=== PATIENT | male | born 1970 | race Caucasian/White ===

== ENCOUNTER 2019-05-12 15:58 | Emergency (ER) | payer BC ==
--- OUTSIDE RECORDS SUMMARY | 2019-05-12 16:25 | XMS REPORT | Continuity of Care Document ---
:1970 External Reference #:[id number] Author Name Kentrell Siegel DO Address [address] [place] [address] Care Team Providers Name Role Phone Rachelle Carroll MD Care Team Information Delivery And Mail Sorter [phone] Problems Active Problems Provider Date Epilepsy Vaughn Sumner DO Onset: 03/27/2017 Social History Type Date Description Comments Sex Unknown ETOH Use consumes 4 six packs per week Tobacco Use Start: Unknown Patient has never smoked Recreational Drug Use Denies Drug Use Allergies, Adverse Reactions, Alerts Active Allergies Reaction Severity Comments Date NKDA 01/22/2015 Seasonal 04/11/2019 Medications Active Medications SIG Qnty Indications Ordering Provider Date Fluticasone Propionate 1 spray each 16gm Kentrell Siegel DO 04/11/2019 nostril 1-2 times 50mcg/Act Suspension a day Claritin 1 by mouth every Unknown 10mg Tablets day Immunizations CPT Code Status Date Vaccine Lot # [id number] Given 03/28/2018 Tdap (Adacel) Ages 7 And Above Only [id number] Given 08/22/2007 Tdap (Adacel) Ages 7 And Above Only [id number] Refused 04/11/2019 Influenza Vac, Quadrivalent, Split, 0.5mL Dosage, Im Use [id number] Refused 03/28/2018 Afluria Imunization Vital Signs Date Vital Result Comment 04/11/2019 10:22am Weight 250.00 lb Heart Rate 72 /min BP Systolic 134 mmHg BP Diastolic 84 mmHg Respiratory Rate 18 /min Height 68.5 inches 5'8.50" BMI (Body Mass Index) 37.5 kg/m2 03/28/2018 2:08pm Weight 254.00 lb Heart Rate 72 /min BP Systolic 130 mmHg BP Diastolic 80 mmHg Respiratory Rate 17 /min Height 68.5 inches 5'8.50" 03/27/17 BMI (Body Mass Index) 38.1 kg/m2 Results Test Date Facility Test Result H/L Range Note Laboratory test finding 04/11/2019 [facility] <pending> Procedures Description No Information Available Medical Devices Description No Information Available Encounters Description No Information Available Assessments Date Code Description Provider 04/11/2019 Z00.00 Encounter for general adult medical Kentrell Siegel DO examination without abnormal findings 04/11/2019 R61 Generalized hyperhidrosis Kentrell Siegel, 04/11/2019 Q66.50 Congenital pes planus, unspecified foot Kentrell Siegel, 04/11/2019 B00.1 Herpesviral vesicular dermatitis Kentrell Siegel DO 04/11/2019 J30.9 Allergic rhinitis, unspecified Kentrell Siegel, 04/11/2019 F10.20 Alcohol dependence, uncomplicated Kentrell Siegel DO 04/11/2019 E66.9 Obesity, unspecified Kentrell Siegel, 04/11/2019 R03.0 Elevated blood-pressure reading, without Kentrell Siegel DO diagnosis of hypertension 04/11/2019 Z68.37 Body mass index (BMI) 37.0-37.9, adult Kentrell Siegel DO 04/11/2019 R03.0 Elevated blood-pressure reading, w/o diagnosis Schedule, Laboratory of htn Plan of Treatment Future Appointment(s):04/12/2020 8:30 am - Kentrell Siegel DO at [facility]04/11/2019 - Kentrell Siegel DOZ00.00 Encounter for general adult medical examination without abnormal findingsFollow up:Blood work today and will follow up with me in 1 year for an Annual Physical Exam.R61 Generalized hyperhidrosisComments: Improved at the present time. Will continue to monitor.Q66.50 Congenital pes planus, unspecified footB00.1 Herpesviral vesicular guszlldxtsB45.9 Allergic rhinitis, unspecifiedComments:Condition reviewed with the patient in detail. May have chronic sinusitis. On physical exam, there is swelling noted in the turbinate. -Recommended the patient that he can use the antihistamines such as Zyrtec, Claritin, Varsha. Encouraged him to continue taking Claritin as he is on the medication.-Recommended the patient to do sinus rinses; Neti-pots.- Recommended using a nose spray; A script for Fluticasone was provided today. - If the symptoms persist or worsen, would need a referral to ENT to specialist.F10.20 Alcohol dependence, qleadajtmgnweI86.9 Obesity, unspecifiedComments:The patient had lost 4lbs of body weight since the previous visit and he currently weighs around 250lbs. A detailed discussion was had with the patient regarding his body weight and BMI. He was made aware about the health hazards of obesity including diabetes, hypertension, cardiac diseases , and other various risk factors. He was advised to maintain a healthy and low- calorie diet and a regular exercise regimen which will help him lose weight.R03.0 Elevated blood-pressure reading, without diagnosis of hypertensionComments:Keep an eye on your blood pressure. Normal blood pressure if 120/80. You should check this about once a week. If this is consistently over 140/90, please come in for evaluation of high blood pressure.Z68.37 Body mass index (BMI) 37.0-37.9, adultComments:The patient's BMI is at 37.5. The patient was strongly encouraged to lose weight with low-calorie diet and exercises. We will continue to monitor weight and BMI periodically.AllNew Medication:Fluticasone Propionate 50 mcg/Act - 1 spray each nostril 1-2 times a day Functional Status Description No Information Available Mental Status Description No Information Available Referrals Description No Information Available
[2019-05-12 20:14] LABS: ABS Basophils 0.1 10^3/ul (0-0.2); ABS Eosinophils 0.1 10^3/ul (0-0.6); ABS Lymphocytes 2.6 10^3/ul (1.0-4.8); ABS Monocytes 0.4 10^3/ul (0-0.8); ABS Neutrophils 4.5 10^3/ul (1.5-7.7); Eosinophil % 0.7 %; Hematocrit 45 % (42-52); Hemoglobin 15.4 g/dL (14.0-18.0); Lymphocyte % 34.6 %; Mean Corpuscular HGB Conc 34 g/dL (31-36); Mean Corpuscular Hemoglobin 30 pg (27-31); Mean Corpuscular Volume 88 fL (80-94); Mean Platelet Volume 9.8 fL (7.4-10.4); Nucleated Red Blood Cells % 0.1; Platelet Count 190 10^3/uL (150-450); Red Blood Count 5.19 10^6 /uL (4.18-5.48); Red Cell Distribution Width 14 % (10-15); White Blood Count 7.7 10^3/uL (3.5-10.8)
[2019-05-12 20:24] LABS: INR 0.99 (0.82-1.09)
[2019-05-12 20:31] LABS: Albumin 4.5 g/dL (3.2-5.2); Albumin/Globulin Ratio 1.4 (1-3); C Reactive Protein 2.27 mg/L (<8.01); Calcium 9.5 mg/dL (8.6-10.3); EGFR Non-African American 68.6 (>60); Globulin 3.3 g/dL (2-4); Potassium 4.1 mmol/L (3.5-5.0); Total Bilirubin 0.5 mg/dL (0.2-1.0); Total Protein 7.8 g/dL (6.4-8.9)
[2019-05-12 21:26] LABS: Urine Appearance Clear; Urine Bilirubin Negative (Negative); Urine Blood Negative (Negative); Urine Color Yellow; Urine Glucose Negative (Negative); Urine Ketones Negative (Negative); Urine Nitrite Negative (Negative); Urine Protein Negative (Negative); Urine Urobilinogen Negative (Negative)
--- NOTE | 2019-05-12 21:37 | ED ---
Abdominal Pain/Male - HPI Summary HPI Summary: This patient is a 48 year old M presenting to [facility] accompanied by_ with a chief complaint of _ since _ The patient rates the pain _/10 in severity. Symptoms aggravated by nothing. Symptoms alleviated by nothing. Patient reports Patient denies PMHx of - History of Current Complaint Chief Complaint: EDFlankPain Stated Complaint: LT SIDE PAIN PER PT Time Seen by Provider: 05/12/19 21:31 Hx Obtained From: Patient Pain Intensity: 8 - Allergies/Home Medications Allergies/Adverse Reactions: Allergies Allergy/AdvReac Type Severity Reaction Status Date / Time No Known Allergies Allergy Verified 06/08/15 19:48 PMH/Surg Hx/FS Hx/Imm Hx Previously Healthy: No Endocrine/Hematology History: Denies: Hx Diabetes Cardiovascular History: Denies: Hx Hypertension, Hx Pacemaker/ICD History: Denies: Hx Renal Disease Sensory History: Denies: Hx Hearing Aid Psychiatric History: Denies: Hx Panic Disorder - Surgical History Surgical History: Yes Surgery Procedure, Year, and Place: Pylonidal Cystectomy, 1997, [facility]. RIGHT KNEE MENISCUS REPAIR Infectious Disease History: No Infectious Disease History: Reports: Hx Shingles Denies: Traveled Outside the [place] in Last 30 Days - Family History Known Family History: Positive: None - Social History Alcohol Use: Weekly Alcohol Amount: 6 Substance Use Type: Reports: None Smoking Status (MU): Never Smoked Tobacco Review of Systems All Other Systems Reviewed And Are Negative: Yes Physical Exam - Summary Physical Exam Summary: General: Well-developed, Well-nourished MALE. No acute distress. HEENT: Normocephalic, Atraumatic. Eyes: Conjuctiva normal, PERRL. Ears: TMs within normal limits. Nares: (-) discharge, (-) erythema. Oropharynx: Clear, mucous membranes moist, (-) exudates. Neck: Soft, FROM, (-) lymphadenopathy, (-) thyromegaly, (-) JVD. Cardiovascular: Normal sinus rhythm, (-) murmur. Lungs: Clear to auscultation bilaterally (-) wheezes, (-) rales, (-) rhonchi. Abdomen: Soft, non-tender, non-distended, (-) organomegaly, normal bowel sounds. Back: (-) CVA tenderness Extremities: No edema. Skin: Warm, dry, (-) rash. Neuro: Alert and oriented x3, no focal deficits. Psychiatric: Mood normal, affect normal. Triage Information Reviewed: Yes Vital Signs On Initial Exam: Initial Vitals Temp Pulse Resp BP Pulse Ox 98.9 F 92 18 147/101 98 05/12/19 16:00 05/12/19 16:00 05/12/19 16:00 05/12/19 16:00 05/12/19 16:00 Vital Signs Reviewed: Yes Procedures - Sedation Patient Received Moderate/Deep Sedation with Procedure: No Diagnostics - Vital Signs Vital Signs Temp Pulse Resp BP Pulse Ox 05/12/19 16:00 98.9 F 92 18 147/101 98 - Laboratory Lab Results: Lab Results 05/12/19 05/12/19 05/12/19 Range/Units 20:06 20:06 20:06 WBC 7.7 (3.5-10.8) 10^3/uL RBC 5.19 (4.18-5.48) 10^6 /uL Hgb 15.4 (14.0-18.0) g/dL Hct 45 (42-52) % MCV 88 (80-94) fL MCH 30 (27-31) pg MCHC 34 (31-36) g/dL RDW 14 (10-15) % Plt Count 190 (150-450) 10^3/uL MPV 9.8 (7.4-10.4) fL Neut % (Auto) 58.3 % Lymph % (Auto) 34.6 % [place] % (Auto) 5.7 % Eos % (Auto) 0.7 % Baso % (Auto) 0.7 % Absolute Neuts (auto) 4.5 (1.5-7.7) 10^3/ul Absolute Lymphs (auto) 2.6 (1.0-4.8) 10^3/ul Absolute Monos (auto) 0.4 (0-0.8) 10^3/ul Absolute Eos (auto) 0.1 (0-0.6) 10^3/ul Absolute Basos (auto) 0.1 (0-0.2) 10^3/ul Absolute Nucleated RBC 0.0 10^3/ul Nucleated RBC % 0.1 INR (Anticoag Therapy) 0.99 (0.82-1.09) Sodium 138 (135-145) mmol/L Potassium 4.1 (3.5-5.0) mmol/L Chloride 103 (101-111) mmol/L Carbon Dioxide 28 (22-32) mmol/L Anion Gap 7 (2-11) mmol/L BUN 16 (6-24) mg/dL Creatinine 1.14 (0.67-1.17) mg/dL Est GFR ( Amer) 83.0 (>60) Est GFR (Non-Af Amer) 68.6 (>60) BUN/Creatinine Ratio 14.0 (8-20) Glucose 94 (70-100) mg/dL Lactic Acid (0.5-2.0) mmol/L Calcium 9.5 (8.6-10.3) mg/dL Total Bilirubin 0.50 (0.2-1.0) mg/dL AST 23 (13-39) U/L ALT 35 (7-52) U/L Alkaline Phosphatase 59 (34-104) U/L C-Reactive Protein 2.27 (<8.01) mg/L Total Protein 7.8 (6.4-8.9) g/dL Albumin 4.5 (3.2-5.2) g/dL Globulin 3.3 (2-4) g/dL Albumin/Globulin Ratio 1.4 (1-3) Urine Color Urine Appearance Urine pH (5-9) Ur Specific [place] (1.010-1.030) Urine Protein (Negative) Urine Ketones (Negative) Urine Blood (Negative) Urine Nitrate (Negative) Urine Bilirubin (Negative) Urine Urobilinogen (Negative) Ur Leukocyte Esterase (Negative) Urine Glucose (Negative) 05/12/19 05/12/19 Range/Units 20:07 21:16 WBC (3.5-10.8) 10^3/uL RBC (4.18-5.48) 10^6 /uL Hgb (14.0-18.0) g/dL Hct (42-52) % MCV (80-94) fL MCH (27-31) pg MCHC (31-36) g/dL RDW (10-15) % Plt Count (150-450) 10^3/uL MPV (7.4-10.4) fL Neut % (Auto) % Lymph % (Auto) % [place] % (Auto) % Eos % (Auto) % Baso % (Auto) % Absolute Neuts (auto) (1.5-7.7) 10^3/ul Absolute Lymphs (auto) (1.0-4.8) 10^3/ul Absolute Monos (auto) (0-0.8) 10^3/ul Absolute Eos (auto) (0-0.6) 10^3/ul Absolute Basos (auto) (0-0.2) 10^3/ul Absolute Nucleated RBC 10^3/ul Nucleated RBC % INR (Anticoag Therapy) (0.82-1.09) Sodium (135-145) mmol/L Potassium (3.5-5.0) mmol/L Chloride (101-111) mmol/L Carbon Dioxide (22-32) mmol/L Anion Gap (2-11) mmol/L BUN (6-24) mg/dL Creatinine (0.67-1.17) mg/dL Est GFR ( Amer) (>60) Est GFR (Non-Af Amer) (>60) BUN/Creatinine Ratio (8-20) Glucose (70-100) mg/dL Lactic Acid 1.1 (0.5-2.0) mmol/L Calcium (8.6-10.3) mg/dL Total Bilirubin (0.2-1.0) mg/dL AST (13-39) U/L ALT (7-52) U/L Alkaline Phosphatase (34-104) U/L C-Reactive Protein (<8.01) mg/L Total Protein (6.4-8.9) g/dL Albumin (3.2-5.2) g/dL Globulin (2-4) g/dL Albumin/Globulin Ratio (1-3) Urine Color Yellow Urine Appearance Clear Urine pH 5.0 (5-9) Ur Specific [place] 1.020 (1.010-1.030) Urine Protein Negative (Negative) Urine Ketones Negative (Negative) Urine Blood Negative (Negative) Urine Nitrate Negative (Negative) Urine Bilirubin Negative (Negative) Urine Urobilinogen Negative (Negative) Ur Leukocyte Esterase Negative (Negative) Urine Glucose Negative (Negative) Result Diagrams: 05/12/19 20:06 05/12/19 20:06 Lab Statement: Any lab studies that have been ordered have been reviewed, and results considered in the medical decision making process. Discharge ED - Discharge Plan Referrals: Kentrell Siegel DO [Primary Care Provider] - - Attestation Statements Document Initiated by Scribe: Yes Documenting Scribe: Emory Toribio Provider For Whom Scribe is Documenting (Include Credential): Dr. Rani Hines MD Scribe Attestation: IEmory, scribed for Dr. Rani Hines MD on 05/12/19 at 2137.
--- NOTE | 2019-05-12 21:59 | ED ---
Back Pain - HPI Summary HPI Summary: This patient is a 48 year old M presenting to [facility] accompanied by a female wire spiral binder with a chief complaint of intermittent, sharp left lower back pain since this morning. Pt states the pain is worse every time the pain comes back. He never had symptoms like this before. Pt did not take any pain medications. He does not have any medical problems, but has a history of surgeries. The patient rates the pain 2/10 in severity. He states the pain was much more severe but seemed to dissipate after getting into the exam room. Symptoms aggravated by nothing. Symptoms alleviated by nothing. Patient reports diarrhea. Patient denies fever, nausea, vomiting, difficulty urinating. Pt does not smoke or use recreational drugs, but occasionally drinks alcohol. - History of Current Complaint Chief Complaint: EDFlankPain Stated Complaint: LT SIDE PAIN PER PT Time Seen by Provider: 05/12/19 21:31 Hx Obtained From: Patient Onset/Duration: Sudden Onset, Lasting Hours - since this morning Onset/Duration: Started Hours Ago, Still Present Timing: Intermittent Severity Initially: Mild Severity Currently: Mild Pain Intensity: 2 Pain Scale Used: 0-10 Numeric Character: Sharp Aggravating Symptom(s): Nothing Alleviating Symptom(s): Nothing Associated Signs And Symptoms: Positive: Other - positive - lower back pain, diarrhea. negative - nausea, vomiting.. Negative: Fever, Bladder Incontinence - Allergies/Home Medications Allergies/Adverse Reactions: Allergies Allergy/AdvReac Type Severity Reaction Status Date / Time No Known Allergies Allergy Verified 06/08/15 19:48 PMH/Surg Hx/FS Hx/Imm Hx Previously Healthy: No Endocrine/Hematology History: Denies: Hx Diabetes Cardiovascular History: Denies: Hx Hypertension, Hx Pacemaker/ICD History: Denies: Hx Renal Disease Psychiatric History: Denies: Hx Panic Disorder - Surgical History Surgical History: Yes Surgery Procedure, Year, and Place: Pylonidal Cystectomy, 1997, [facility]. RIGHT KNEE MENISCUS REPAIR Infectious Disease History: No Infectious Disease History: Reports: Hx Shingles Denies: Traveled Outside the [place] in Last 30 Days - Family History Known Family History: Positive: None - Social History Alcohol Use: Weekly Alcohol Amount: 6 Substance Use Type: Reports: None Smoking Status (MU): Never Smoked Tobacco Review of Systems Negative: Fever Positive: Diarrhea. Negative: Vomiting, Nausea Genitourinary: Other - negative - difficulty urinating Musculoskeletal: Other - positive - lower back pain All Other Systems Reviewed And Are Negative: Yes Physical Exam - Summary Physical Exam Summary: General: Well-developed, Well-nourished MALE. Mild discomfort. HEENT: Normocephalic, Atraumatic. Eyes: Conjuctiva normal, PERRL. Ears: TMs within normal limits. Nares: (-) discharge, (-) erythema. Oropharynx: Clear, mucous membranes moist, (-) exudates. Neck: Soft, FROM, (-) lymphadenopathy, (-) thyromegaly, (-) JVD. Cardiovascular: Normal sinus rhythm, (-) murmur. Lungs: Clear to auscultation bilaterally (-) wheezes, (-) rales, (-) rhonchi. Abdomen: Soft, non-tender, non-distended, (-) organomegaly, normal bowel sounds. Back: (-) CVA tenderness Extremities: No edema. Skin: Warm, dry, (-) rash. Neuro: Alert and oriented x3, no focal deficits. Psychiatric: Mood normal, affect normal. Triage Information Reviewed: Yes Vital Signs On Initial Exam: Initial Vitals Temp Pulse Resp BP Pulse Ox 98.9 F 92 18 147/101 98 05/12/19 16:00 05/12/19 16:00 05/12/19 16:00 05/12/19 16:00 05/12/19 16:00 Vital Signs Reviewed: Yes Procedures - Sedation Patient Received Moderate/Deep Sedation with Procedure: No Diagnostics - Vital Signs Vital Signs Temp Pulse Resp BP Pulse Ox 05/12/19 16:00 98.9 F 92 18 147/101 98 - Laboratory Lab Results: Lab Results 05/12/19 05/12/19 05/12/19 Range/Units 20:06 20:06 20:06 WBC 7.7 (3.5-10.8) 10^3/uL RBC 5.19 (4.18-5.48) 10^6 /uL Hgb 15.4 (14.0-18.0) g/dL Hct 45 (42-52) % MCV 88 (80-94) fL MCH 30 (27-31) pg MCHC 34 (31-36) g/dL RDW 14 (10-15) % Plt Count 190 (150-450) 10^3/uL MPV 9.8 (7.4-10.4) fL Neut % (Auto) 58.3 % Lymph % (Auto) 34.6 % [place] % (Auto) 5.7 % Eos % (Auto) 0.7 % Baso % (Auto) 0.7 % Absolute Neuts (auto) 4.5 (1.5-7.7) 10^3/ul Absolute Lymphs (auto) 2.6 (1.0-4.8) 10^3/ul Absolute Monos (auto) 0.4 (0-0.8) 10^3/ul Absolute Eos (auto) 0.1 (0-0.6) 10^3/ul Absolute Basos (auto) 0.1 (0-0.2) 10^3/ul Absolute Nucleated RBC 0.0 10^3/ul Nucleated RBC % 0.1 INR (Anticoag Therapy) 0.99 (0.82-1.09) Sodium 138 (135-145) mmol/L Potassium 4.1 (3.5-5.0) mmol/L Chloride 103 (101-111) mmol/L Carbon Dioxide 28 (22-32) mmol/L Anion Gap 7 (2-11) mmol/L BUN 16 (6-24) mg/dL Creatinine 1.14 (0.67-1.17) mg/dL Est GFR ( Amer) 83.0 (>60) Est GFR (Non-Af Amer) 68.6 (>60) BUN/Creatinine Ratio 14.0 (8-20) Glucose 94 (70-100) mg/dL Lactic Acid (0.5-2.0) mmol/L Calcium 9.5 (8.6-10.3) mg/dL Total Bilirubin 0.50 (0.2-1.0) mg/dL AST 23 (13-39) U/L ALT 35 (7-52) U/L Alkaline Phosphatase 59 (34-104) U/L C-Reactive Protein 2.27 (<8.01) mg/L Total Protein 7.8 (6.4-8.9) g/dL Albumin 4.5 (3.2-5.2) g/dL Globulin 3.3 (2-4) g/dL Albumin/Globulin Ratio 1.4 (1-3) Urine Color Urine Appearance Urine pH (5-9) Ur Specific [place] (1.010-1.030) Urine Protein (Negative) Urine Ketones (Negative) Urine Blood (Negative) Urine Nitrate (Negative) Urine Bilirubin (Negative) Urine Urobilinogen (Negative) Ur Leukocyte Esterase (Negative) Urine Glucose (Negative) 05/12/19 05/12/19 Range/Units 20:07 21:16 WBC (3.5-10.8) 10^3/uL RBC (4.18-5.48) 10^6 /uL Hgb (14.0-18.0) g/dL Hct (42-52) % MCV (80-94) fL MCH (27-31) pg MCHC (31-36) g/dL RDW (10-15) % Plt Count (150-450) 10^3/uL MPV (7.4-10.4) fL Neut % (Auto) % Lymph % (Auto) % [place] % (Auto) % Eos % (Auto) % Baso % (Auto) % Absolute Neuts (auto) (1.5-7.7) 10^3/ul Absolute Lymphs (auto) (1.0-4.8) 10^3/ul Absolute Monos (auto) (0-0.8) 10^3/ul Absolute Eos (auto) (0-0.6) 10^3/ul Absolute Basos (auto) (0-0.2) 10^3/ul Absolute Nucleated RBC 10^3/ul Nucleated RBC % INR (Anticoag Therapy) (0.82-1.09) Sodium (135-145) mmol/L Potassium (3.5-5.0) mmol/L Chloride (101-111) mmol/L Carbon Dioxide (22-32) mmol/L Anion Gap (2-11) mmol/L BUN (6-24) mg/dL Creatinine (0.67-1.17) mg/dL Est GFR ( Amer) (>60) Est GFR (Non-Af Amer) (>60) BUN/Creatinine Ratio (8-20) Glucose (70-100) mg/dL Lactic Acid 1.1 (0.5-2.0) mmol/L Calcium (8.6-10.3) mg/dL Total Bilirubin (0.2-1.0) mg/dL AST (13-39) U/L ALT (7-52) U/L Alkaline Phosphatase (34-104) U/L C-Reactive Protein (<8.01) mg/L Total Protein (6.4-8.9) g/dL Albumin (3.2-5.2) g/dL Globulin (2-4) g/dL Albumin/Globulin Ratio (1-3) Urine Color Yellow Urine Appearance Clear Urine pH 5.0 (5-9) Ur Specific [place] 1.020 (1.010-1.030) Urine Protein Negative (Negative) Urine Ketones Negative (Negative) Urine Blood Negative (Negative) Urine Nitrate Negative (Negative) Urine Bilirubin Negative (Negative) Urine Urobilinogen Negative (Negative) Ur Leukocyte Esterase Negative (Negative) Urine Glucose Negative (Negative) Result Diagrams: 05/12/19 20:06 05/12/19 20:06 Lab Statement: Any lab studies that have been ordered have been reviewed, and results considered in the medical decision making process. - CT Abd/Pel CT Interpretation Completed By: Radiologist Summary of CT Findings: IMPRESSION: 1. There is mild colonic diverticulosis without evidence for acute. diverticulitis. 2. No visible renal, ureteral or bladder calculi. These findings were reviewed by Dr. Hines. Back Pain Course/Dx - Course Course Of Treatment: 48-year-old male presents with sudden onset flank pain today. During ED course, pt was given Toradol. Pain continued to be well controlled. Workup demonstrates no significant abnormality. Patient reassured. Discharged home. Possible kidney stone that has passed in the emergency room. Possible musculoskeletal pain. Follow-up with PCP. Follow up sooner for any worsening symptoms. - Diagnoses Provider Diagnoses: Flank pain Discharge ED - Sign-Out/Discharge Documenting (check all that apply): Patient Departure - discharge - Discharge Plan Condition: Stable Disposition: HOME Patient Education Materials: Flank Pain (ED) Referrals: Kentrell Siegel DO [Primary Care Provider] - 3 Days Additional Instructions: Follow up with your primary care provider within 3 days. Return to the ED for any new or worsening symptoms. - Billing Disposition and Condition Condition: STABLE Disposition: Home - Attestation Statements Document Initiated by Scribe: Yes Documenting Scribe: Emory Toribio Provider For Whom Scribe is Documenting (Include Credential): Dr. Rani Hines MD Scribe Attestation: IEmory, scribed for Dr. Rani Hines MD on 05/13/19 at 0146. Scribe Documentation Reviewed: Yes Provider Attestation: The documentation as recorded by the scribe, Emory Toribio accurately reflects the service I personally performed and the decisions made by me, Dr. Rani Hines MD Status of Scribe Document: Viewed
[2019-05-12] MEDS ORDERED: Ketorolac INJ* 30 MG/ML 1 ML VIAL IM ONE (22:05)
[2019-05-13 02:10] VITALS: BP 127/71
== END 2019-05-13 02:10 | disposition home or self-care (01) ==
LOC: ED 15:58
DX: R10.32 Left lower quadrant pain (principal); K57.30 Diverticulosis of large intestine without perforation or abscess without bleeding
CPT/HCPCS: 36415; 74176; 80053; 81003; 83605; 85025; 85610; 86140; 96372; 99283; J1885